=== PATIENT | male | born 1995 | race African-American/Black ===

== ENCOUNTER → 2020-11-15 | Outpatient (CLI) | payer SELFPAY ==
--- NOTE | 2020-11-15 12:51 | Diagnostic Imaging Report ---
PROCEDURE: MRI lumbar spine. TECHNIQUE: Multiplanar, multisequence MRI of the lumbar spine was performed without contrast. INDICATION: Lower back pain. COMPARISON: None. FINDINGS: For the purposes of this exam, last well-formed disc space is denoted to be the L5-S1 level. Static alignment of the lumbar spine is maintained. There is no significant yusuf- or retrolisthesis. There is no evidence of jumped facets. Vertebral body heights are maintained. There is no acute fracture. There are areas of prominent discontinuity and deformity involving the posterior margins of the adjacent endplates at the L1-L2 level. Evaluation of the marrow signal demonstrates moderate amount of associated edema within the L1 and L2 vertebral bodies. Findings are suspicious for acute Schmorl's node. Remainder of the marrow signal is unremarkable. Visualized portions of the distal cord are within normal limits. Conus terminates at approximately the T12 level. No abnormal intrathecal filling defects are seen. Pre and paravertebral soft tissue structures are unremarkable. Axial images demonstrate the following: T12-L1: There is no large disc bulge or focal protrusion. There is no significant spinal canal or neuroforaminal stenosis. L1-L2: There is broad-based posterior disc bulge, eccentric to the left. As a result, there is minimal narrowing of the spinal canal and left neuroforamen. L2-L3: There is no large disc bulge or focal protrusion. There is no significant spinal canal or neuroforaminal stenosis. L3-L4: There is no large disc bulge or focal protrusion. There is no significant spinal canal or neuroforaminal stenosis. L4-L5: There is small central posterior disc protrusion superimposed on slight broad-based posterior disc bulge as well as bilateral ligamentum flavum laxity and facet arthropathy. As a result, there is minimal narrowing of the spinal canal and bilateral neural foramen. L5-S1: There is no large disc bulge or focal protrusion. There is bilateral facet arthropathy, but no significant spinal canal or neuroforaminal stenosis. IMPRESSION: 1. Prominent Schmorl's nodes involving the adjacent endplates at L1-L2. Moderate amount of associated edema suggests acute development. Clinical correlation is advised. 2. No acute fracture or dislocation. 3. Mild multilevel degenerative changes. Dictated by: Dictated on workstation # [id number]
== END ==
LOC: RAD 10:38
PROVIDERS: ATTEND Pediatrics
DX: M47.816 Spondylosis without myelopathy or radiculopathy, lumbar region (principal)
CPT/HCPCS: 72148